=== PATIENT | female | born 1975 | race Asian ===

== ENCOUNTER → 2017-09-13 | Outpatient (CLI) | payer OTHER | LOC: FIMAGING 14:25 | PROVIDERS: ATTEND Nurse Practitioner Family | DX: Z12.31 Encounter for screening mammogram for malignant neoplasm of breast (principal) | CPT/HCPCS: G0202 ==

== ENCOUNTER → 2018-09-16 | Outpatient (CLI) | payer OTHER | LOC: FIMAGING 10:58 | PROVIDERS: ATTEND Family Medicine | DX: Z12.31 Encounter for screening mammogram for malignant neoplasm of breast (principal) ==